=== PATIENT | female | born 1965 | race Caucasian/White ===

== ENCOUNTER 2017-03-02 18:45 | Observation (INO) | payer OTHER ==
--- NOTE | 2017-03-02 18:58 | EDPHY ---
H & P Time Seen by Provider: 03/02/17 18:56 HPI/ROS: CHIEF COMPLAINT: Open fracture of patella. HISTORY OF PRESENT ILLNESS: The patient is a 51-year-old female who presents with an open fracture of her left patella secondary to a trail running fall earlier today. She was seen at [facility] and had x-rays taken that showed the open fracture. The orthopedic surgeon was notified and she was sent here for surgery. She was given 2 [place] at [facility] and is not in pain here. Last oral intake at 3:00 p.m.. Tetanus is up-to-date. She has tolerated anesthesia well in the past. She denies other complaints at this time. REVIEW OF SYSTEMS: A complete 10-point review of systems was performed and is negative except for those items mentioned in the HPI. Past Medical/Surgical History: Hypothyroidism, pulmonary embolism. Social History: Nonsmoker. Smoking Status: Never smoked Physical Exam: General Appearance: Alert, pleasant Eyes: Pupils equal and round, no conjunctival pallor ENT, Mouth: Mucous membranes moist Neck: Normal inspection Respiratory: Lungs are clear to auscultation Cardiovascular: Regular rate and rhythm Gastrointestinal: Abdomen is soft and non-tender Neurological: A&O, nonfocal exam Skin: Warm and dry Extremities: Nontender, no pedal edema. Left leg: bandage over patella. Knee is in immobilizer. Dorsalis pedis pulse 2+. Psychiatric: Mood and affect normal Constitutional: Initial Vital Signs Temperature (C) 36.7 C 03/02/17 18:49 Heart Rate 66 03/02/17 18:49 Respiratory Rate 16 03/02/17 18:49 Blood Pressure 143/93 H 03/02/17 18:49 O2 Sat (%) 97 03/02/17 18:49 O2 Delivery Mode Room Air Allergies/Adverse Reactions: rofecoxib [From Vioxx] Allergy (Intermediate, Verified 03/02/17 18:54) Hives Home Medications: Medication Instructions Recorded Ibuprofen [Motrin (*)] 200 - 400 mg PO PRN PRN 03/02/17 Levothyroxine Sodium 125 mcg PO DAILY@06 03/02/17 [Levothyroxine Sodium] Multivitamins [Multivitamin (*)] 1 each PO DAILY 03/02/17 Medical Decision Making ED Course/Re-evaluation: 51-year-old female presents with open left patella fracture. I consulted with Dr. Stubbs, orthopedic surgeon, prior to this patient's arrival. He reviewed the x-rays from [facility] and will perform surgery later tonight. On arrival she is not in pain and has no other complaints. Her knee is wrapped and in a knee immobilizer from Urgent Care. Dr. Stubbs has been paged. Will give abx in OR. Departure - Departure Disposition: To OP Cath/Surgery Clinical Impression: Open fracture of patella Qualifiers: Encounter type: initial encounter Open fracture type: open type I or II Fracture morphology: unspecified fracture morphology Laterality: left Qualified Code(s): S82.002B - Unspecified fracture of left patella, initial encounter for open fracture type I or II Condition: Fair Report Scribed for: Jane Nguyen Report Scribed by: Trung Weeks Date of Report: 03/02/17 Time of Report: 19:21 Physician Review and Approval Statement: 03/02/17 19:22 Portions of this note were transcribed by a medical legal investigator. I personally performed a history, physical exam, medical decision making, and confirmed accuracy of information the transcribed note.
[2017-03-02] MEDS ORDERED: BUPIVACAINE 0.5% 30 ML SDV ONE (19:14)
[2017-03-02] MEDS ORDERED: MIDAZOLAM 2 MG/2 ML VIAL ONE (20:06)
[2017-03-02] MEDS ORDERED: CEFAZOLIN 2 GM/DEXTROSE/100 ML BAG IV ONE (20:06)
[2017-03-02] MEDS ORDERED: PROPOFOL 200 MG/20 ML VIAL ONE (20:07)
[2017-03-02] MEDS ORDERED: fentaNYL 250 MCG/5 ML INJ ONE (20:07)
[2017-03-02] MEDS ORDERED: LIDOCAINE 2% JELLY 5 ML TUBE ONE (20:07)
[2017-03-02] MEDS ORDERED: ONDANSETRON 4 MG/2 ML VIAL ONE (20:08)
[2017-03-02] MEDS ORDERED: LIDOCAINE 2% 5 ML SDV ONE (20:08)
[2017-03-02] MEDS ORDERED: DEXAMETHASONE 4 MG/ML VIAL ONE ×2 (20:08)
[2017-03-02] MEDS ORDERED: ceFAZolin 2 GM/DEXTROSE 100 ML IV ONE (20:30)
[2017-03-02] MEDS ORDERED: morphINE PCA 30 MG/30 ML PCA IV PRN (22:05)
[2017-03-02] MEDS ORDERED: NALOXONE HCL 0.4 MG/ML INJ IVP PRN (22:05)
[2017-03-02] MEDS ORDERED: OXYCODONE/APAP 5/325 TAB PO PRN (22:05)
--- NOTE | 2017-03-02 22:05 | POSTOPPROG ---
Post Op Note Date of Operation: 03/02/17 Surgeon: Arun Stubbs Anesthesia: GET(General Endotracheal) Pre-op Diagnosis: L open patella fx Post-op Diagnosis: same Procedure: ORIF L patella fx, I&D L knee Inf/Abcess present in the surg proc area at time of surgery?: No EBL: Minimal
[2017-03-02] MEDS ORDERED: D5W 1/2 NS W/ 20 KCl/L 1,000 ML IV SCH (22:15)
[2017-03-02] MEDS ORDERED: fentaNYL 100 MCG/2 ML INJ ONE (22:20)
[2017-03-02] MEDS: ONDANSETRON 4 MG/2 ML VIAL IVP PRN (23:32)
--- NOTE | 2017-03-02 23:39 | GOP ---
[f rep st] OPERATIVE REPORT DATE OF OPERATION: 03/02/2017 SURGEON: Arun Stubbs MD ANESTHESIA: General. PREOPERATIVE DIAGNOSIS: Left open patellar fracture. POSTOPERATIVE DIAGNOSIS: Left open patellar fracture. PROCEDURE PERFORMED: 1. Open reduction internal fixation, left patellar fracture. 2. Irrigation and debridement, left knee. 3. Intraoperative use of fluoroscopy. FINDINGS: ESTIMATED BLOOD LOSS: Minimal. INDICATIONS: Patient is a 51-year-old who on the afternoon of surgery sustained a fall on the anter ior aspect of her left knee resulting in a left open patellar fracture. Based on the open displaced nature of the injury. It was recommended that operative treatment consisting of open reduction, int ernal fixation be pursued. The patient acknowledged she understood the potential risks of the opera tion including, but not limited to, bleeding, infection, neurovascular damage, loss of limb function , malunion, nonunion, pain, need for hardware removal, pain or functional limitations despite operat vince treatment, and anesthetic risks. She acknowledged she understood the potential risks, planned p rocedure, and postoperative plan well, and had all questions answered prior to surgery. She gave he r consent for the operative procedure. DESCRIPTION OF PROCEDURE: The patient was brought into the operating room, after IV antibiotics wer e administered. She was placed in the supine position, where general anesthetic was administered. Tourniquet was placed on left thigh, and left lower extremity was prepped and draped in standard penny rile fashion. After marking the incision and Joey wrap exsanguination, tourniquet was inflated to 25 0. Her oblique laceration was extended proximally and distally. Skin and subcutaneous tissue were sun ply incised. Sharp dissection was carried through the extensor retinaculum. A limited portion of t he retinaculum adjacent to the patellar fracture was opened to allow for adequate debridement. Util izing a wide-bore tubing, 6 L of sterile saline were copiously flushed through the wound. No visibl e debris was seen. Utilizing a 2-point reduction clamp, and a revisional Caroline wire, the patell ar fracture was reduced with reduction confirmed fluoroscopically. Two 4.0 mm cortical screws were placed in the inferior to superior direction under lag fashion. While the purchase of the screws wa s stable, it was felt that supplemental tension band wiring would be prudent. Then 2.9 mm drill hol es were drilled both medial and lateral to the screws. A wire was placed through these holes in an inferior to superior direction, then looped around the opposite direction gaining favorable purchase along the superior and inferior pole of patella, and brought out the opposite side. The tension ba nd knots were twisted until appropriate tension had been obtained. The ends were cut, and bent flus h with the bone. Fluoroscopic views confirmed favorable implant position and reduction. Attention was directed towards closure. The extensor retinaculum was closed with 0 Vicryl suture in interrupted fashion. Subcutaneous tissue closed with 3-0 Vicryl suture in interrupted fashion. Sk in closed with 4-0 nylon interrupted sutures. 0.5% Marcaine without epinephrine was injected in the wound sites. The wounds were dressed with sterile Adaptic, 4 x 4, Kerlix, and the patient was plac ed in a knee immobilizer. The patient was taken to the recovery room, extubated, in stable condition postoperatively. All spo nge, needle, and instrument counts were reported as being correct. DRAINS: None. COMPLICATIONS: None. PLAN: The patient will be admitted overnight for IV antibiotics and surgical recovery due to the fa ct that it was relatively late at night. She will be weightbearing as tolerated in her knee immobil izer. /[id number]/MODL
--- NOTE | 2017-03-03 00:09 | GCON ---
[f rep st] CONSULTATION DATE OF CONSULTATION: 03/02/2017 REASON FOR CONSULTATION: Left knee injury. HISTORY OF PRESENT ILLNESS: The patient is a 51-year-old who sustained a fall while trail running, landing on the anterior aspect of her knee. She presented initially to an urgent care, with subsequ ent transfer upon phone consultation. She was noted to have an open laceration along the anterior a spect of her knee, with a transverse patella fracture. PHYSICAL EXAMINATION: On examination relative to the consultation, there is approximately a 2-cm la ceration on the anterior aspect of the knee, which had been sutured by the urgent care. She had pal pable defect in her patella, with diminished extension mechanism. Distal neurovascular exam was farhat ssly intact. IMAGING: Showed a displaced transverse patella fracture. ASSESSMENT: Left open patella fracture. PLAN: It is recommended that operative treatment consisting of irrigation and debridement, and open reduction, internal fixation be pursued. This will be performed pending OR availability and [facility]. /[id number]/MODL
[2017-03-03] MEDS: oxyCODONE IR 5 MG TAB PO PRN ×3 (00:41→13:07)
[2017-03-03] MEDS: ceFAZolin 2 GM/DEXTROSE 100 ML IV SCH ×2 (04:26→11:23)
[2017-03-03 04:29] VITALS: RESP 16
[2017-03-03] MEDS ORDERED: LEVOTHYROXINE 125 MCG TAB PO SCH (06:00)
[2017-03-03 08:30] VITALS: BP 112/71; PULSE 66; TEMP 97.9; O2SAT 98
[2017-03-03] MEDS ORDERED: MULTIVITAMINS 1 EACH TAB PO SCH (09:00)
[2017-03-03] MEDS ORDERED: ENOXAPARIN 40 MG/0.4 ML SYR SC SCH (09:00)
[2017-03-03] MEDS ORDERED: MULTIVITAMINS PO SCH (09:00)
--- NOTE | 2017-03-03 09:08 | SOAPPROG ---
SOAP Progress Note Assessment/Plan: Assessment: S/P ORIF L open patella fx Pain tolerable [place] diet + U/O Dressing intact Distal NVI Plan: D/C home post PT 03/03/17 09:06 Objective: Vital Signs Temp Pulse Resp BP Pulse Ox 36.6 C 66 16 112/71 98 03/03/17 08:00 03/03/17 08:00 03/03/17 08:00 03/03/17 08:00 03/03/17 08:00 03/02/17 03/03/17 03/04/17 05:59 05:59 05:59 Intake Total 1225 Output Total 480 Balance 745 ICD10 Worksheet Patient Problems: Problems Problem Status Onset Open fracture of patella Acute
[2017-03-03] MEDS: ONDANSETRON 4 MG/2 ML VIAL IVP PRN (12:03)
== END 2017-03-03 13:38 | disposition home or self-care (01) ==
LOC: UNDOADMOB 19:17 → F3N 22:43
PROVIDERS: ADMIT Orthopaedic Surgery Foot and Ankle Surgery; ATTEND Orthopaedic Surgery Foot and Ankle Surgery
DX: S82.032B Displaced transverse fracture of left patella, initial encounter for open fracture type I or II (principal); W01.10XA Fall on same level from slipping, tripping and stumbling with subsequent striking against unspecified object, initial encounter; Y93.02 Activity, running; E03.9 Hypothyroidism, unspecified; Z86.711 Personal history of pulmonary embolism
CPT/HCPCS: 27524; 97116; 97161; C1769; G0378; C1713; J0690; J1100; J1650; J2250; J2405; J2704; J3010

== ENCOUNTER → 2017-03-02 | Outpatient (CLI) | payer OTHER | LOC: BMCIMAGING 17:05 | PROVIDERS: ATTEND Emergency Medicine | DX: S82.032A Displaced transverse fracture of left patella, initial encounter for closed fracture (principal) ==